=== PATIENT | male | born 1960 | race Caucasian/White ===

== ENCOUNTER 2021-12-19 08:46 | Emergency (ER) | payer MEDICAID, SELFPAY ==
--- NOTE | 2021-12-19 | ECG_ITS ---
Test Reason : chest pain Blood Pressure : / mmHG Vent. Rate : 118 BPM Atrial Rate : 118 BPM P-R Int : 184 ms QRS Dur : 108 ms QT Int : 322 ms P-R-T Axes : 069 052 024 degrees QTc Int : 451 ms Sinus tachycardia with occasional Premature ventricular complexes and Fusion complexes Inferior infarct (cited on or before 20-OCT-2016) Abnormal ECG When compared with ECG of 20-OCT-2016 10:37, Fusion complexes are now Present Premature ventricular complexes are now Present Referred By: Generic ED Physician Electronically Signed By:Narayan Cisneros
--- NOTE | ~2021-12-19 | XR_ITS ---
EXAMINATION: XR CHEST CLINICAL INFORMATION: Shortness of breath COMPARISON: Previous chest x-ray most recent October 2016 TECHNIQUE: Frontal view of the chest was obtained. FINDINGS: No significant abnormality is noted involving the heart, lungs, mediastinum, bony thorax or soft tissues. XR/XR chest 1V IMPRESSION: Unremarkable examination.
[2021-12-19 08:57] VITALS: BP 157/97; PULSE 118; RESP 18; TEMP 37.1; O2SAT 97; BMI 27.7
--- NOTE | 2021-12-19 09:55 | ED_ITS ---
HPI - Chest Pain General Chief Complaint: Chest Pain Stated Complaint: chest tightness Time Seen by Provider: 12/19/21 09:42 History of Present Illness HPI narrative: Patient is a 61-year-old male with a long history of COPD. Quit smoking approximately 6 years ago. Presents today with some coughing some generalized malaise some chest pain that is over the right lower chest area. Worse when she coughs. There is no diaphoresis. Positive generalized malaise. Patient had his coronavirus vaccine x3. Patient denies any diarrhea. Denies any history of blood clots. No leg swelling. No history of cancer. No risk stratification done in the past. No diabetes, hypertension. Positive history of smoking. No history of WI in the past. No family history of WI. not O2 dependent. Related Data Allergies Allergy/AdvReac Type Severity Reaction Status Date / Time No Known Allergies Allergy Verified 12/19/21 08:52 [No Known Allergies*] Review of Systems Review of Systems: Positive coughing positive chest pain No diaphoresis All system reviewed otherwise negative PMFSH Past Medical History Attestation statement: The following information was validated with the patient. Medical History COPD (chronic obstructive pulmonary disease) Social History Social History Advance Directives: No Advance Directives Information Provided: No Physical Exam Vital Signs: Vital Signs: Last Vital Signs Temp 98.8 F 12/19/21 08:57 Pulse 116 H 12/19/21 10:59 Resp 22 H 12/19/21 10:59 BP 157/97 H 12/19/21 08:57 Pulse Ox 97 12/19/21 08:57 BMI result Body Mass Index 27.7 Appearance: Alert. Oriented X3. No acute distress. Eyes: Pupils equal, round and reactive to light. ENT: Pharynx normal. Neck: Normal inspection. Neck supple. No lymph nodes noted. No crepitus CVS: Normal heart rate and rhythm. Pulses normal. Normal S1 and S2 Respiratory: Diminished breath sounds bilaterally Abdomen: Soft and nontender. No rigidity. No distention. good BS x4 Skin: Skin warm and dry. Normal skin color. Normal skin turgor. Extremities: No lower extremity edema. Neurovascular intact to all extremities. No Lacerations. No Rash Neuro: Oriented X 3. No motor deficit. No sensory deficit. Moving all extermities. No slurred speech MDM - Chest Pain MDM Narrative Medical decision making narrative: Patient's chest pain atypical for ACS. Two sets of cardiac enzymes are negative. He is 61 years old he has a significant history of smoking. His EKG showed a sinus pattern with PVCs. Heart rate was 110 initially. There is no acute ST segment elevation noted. EKG is unchanged from previous. Patient's D- dimer is 282 considering patient is 61 years old age adjusted patient's D-dimer is actually negative. Will discharge patient home in this setting patient has very low risk for blood clot has history not consistent with a blood clot D- dimer is negative. He is in stable condition with discharge home. Patient's flu and COVID were negative. Medical Records Data Attestation: I reviewed the patient's medical records. Lab Data Attestation: I reviewed the patient's lab results. Result diagrams: 12/19/21 10:20 12/19/21 10:20 Labs: Lab Results 12/19/21 12/19/21 12/19/21 Range/Units 10:20 10:20 10:20 WBC 7.5 (4.8-10.8) X10*3/uL RBC 5.19 (4.60-5.80) X10*6/uL Hgb 13.9 L (14.0-18.0) g/dl Hct 41.2 L (42.0-52.0) % MCV 79.4 L (80.0-98.0) fL MCH 26.8 L (27.0-33.0) pg MCHC 33.7 (31.0-36.0) g/dl RDW 14.9 (11.0-16.0) % Plt Count 269 (160-400) X10*3/uL MPV 10.3 (9.4-12.4) fL Immature Gran % (Auto) 0.3 (0.0-0.4) % Neut % (Auto) 47.6 (45-73) % Lymph % (Auto) 29.8 (20-40) % [place] % (Auto) 8.4 (2-11) % Eos % (Auto) 12.7 H (0-4) % Baso % (Auto) 1.2 (0-2) % Lymph # (Auto) 2.3 (1.2-4.9) X10*3/uL [place] # (Auto) 0.6 (0.1-1.2) X10*3/uL Eos # (Auto) 1.0 H (0.0-0.4) X10*3/uL Baso # (Auto) 0.1 (0.0-0.2) X10*3/uL Abs Immat Gran (auto) 0.02 (0.00-0.03) X10*3/uL Absolute Neuts (auto) 3.6 (2.0-8.3) x10*3/uL Absolute Nucleated RBC 0.000 (0.0-0.012) X10*3/uL Nucleated RBC % (auto) 0.0 (0.0-0.2) /100WBC D-Dimer High Sensitivty NG/ML Sodium 136 (135-145) mmol/L Potassium 3.8 (3.3-5.1) mmol/L Chloride 103 (96-108) mmol/L Carbon Dioxide 27 (22-29) mmol/L Anion Gap 10 L (12-20) BUN 5 L (9-16) mg/dL Creatinine 0.88 (0.5-1.4) mg/dL Estim Creat Clear Calc 102.1 Estimated GFR > 60 Random Glucose 119 H (60-115) mg/dL Calcium 9.3 (8.4-10.2) mg/dL Troponin I High Sens 11.8 (<3.5-35.0) ng/L B-Natriuretic Peptide 32 (<100) pg/mL COVID-19 ([facility]) (Negative) COVID-19 Clin Com Influenza Type A (YUVAL) Influenza Type B (YUVAL) Influenza A & B Note 12/19/21 12/19/21 12/19/21 Range/Units 10:20 10:21 11:14 WBC (4.8-10.8) X10*3/uL RBC (4.60-5.80) X10*6/uL Hgb (14.0-18.0) g/dl Hct (42.0-52.0) % MCV (80.0-98.0) fL MCH (27.0-33.0) pg MCHC (31.0-36.0) g/dl RDW (11.0-16.0) % Plt Count (160-400) X10*3/uL MPV (9.4-12.4) fL Immature Gran % (Auto) (0.0-0.4) % Neut % (Auto) (45-73) % Lymph % (Auto) (20-40) % [place] % (Auto) (2-11) % Eos % (Auto) (0-4) % Baso % (Auto) (0-2) % Lymph # (Auto) (1.2-4.9) X10*3/uL [place] # (Auto) (0.1-1.2) X10*3/uL Eos # (Auto) (0.0-0.4) X10*3/uL Baso # (Auto) (0.0-0.2) X10*3/uL Abs Immat Gran (auto) (0.00-0.03) X10*3/uL Absolute Neuts (auto) (2.0-8.3) x10*3/uL Absolute Nucleated RBC (0.0-0.012) X10*3/uL Nucleated RBC % (auto) (0.0-0.2) /100WBC D-Dimer High Sensitivty 282 NG/ML Sodium (135-145) mmol/L Potassium (3.3-5.1) mmol/L Chloride (96-108) mmol/L Carbon Dioxide (22-29) mmol/L Anion Gap (12-20) BUN (9-16) mg/dL Creatinine (0.5-1.4) mg/dL Estim Creat Clear Calc Estimated GFR Random Glucose (60-115) mg/dL Calcium (8.4-10.2) mg/dL Troponin I High Sens (<3.5-35.0) ng/L B-Natriuretic Peptide (<100) pg/mL COVID-19 (GENE) Negative (Negative) COVID-19 Clin Com See Note Influenza Type A (YUVAL) Cancelled Influenza Type B (YUVAL) Cancelled Influenza A & B Note Cancelled 12/19/21 12/19/21 Range/Units 12:28 12:28 WBC (4.8-10.8) X10*3/uL RBC (4.60-5.80) X10*6/uL Hgb (14.0-18.0) g/dl Hct (42.0-52.0) % MCV (80.0-98.0) fL MCH (27.0-33.0) pg MCHC (31.0-36.0) g/dl RDW (11.0-16.0) % Plt Count (160-400) X10*3/uL MPV (9.4-12.4) fL Immature Gran % (Auto) (0.0-0.4) % Neut % (Auto) (45-73) % Lymph % (Auto) (20-40) % [place] % (Auto) (2-11) % Eos % (Auto) (0-4) % Baso % (Auto) (0-2) % Lymph # (Auto) (1.2-4.9) X10*3/uL [place] # (Auto) (0.1-1.2) X10*3/uL Eos # (Auto) (0.0-0.4) X10*3/uL Baso # (Auto) (0.0-0.2) X10*3/uL Abs Immat Gran (auto) (0.00-0.03) X10*3/uL Absolute Neuts (auto) (2.0-8.3) x10*3/uL Absolute Nucleated RBC (0.0-0.012) X10*3/uL Nucleated RBC % (auto) (0.0-0.2) /100WBC D-Dimer High Sensitivty NG/ML Sodium (135-145) mmol/L Potassium (3.3-5.1) mmol/L Chloride (96-108) mmol/L Carbon Dioxide (22-29) mmol/L Anion Gap (12-20) BUN (9-16) mg/dL Creatinine (0.5-1.4) mg/dL Estim Creat Clear Calc Estimated GFR Random Glucose (60-115) mg/dL Calcium (8.4-10.2) mg/dL Troponin I High Sens 12.6 (<3.5-35.0) ng/L B-Natriuretic Peptide (<100) pg/mL COVID-19 (GENE) (Negative) COVID-19 Clin Com Influenza Type A (YUVAL) Negative Influenza Type B (YUVAL) Negative Influenza A & B Note See Note Discharge Plan Discharge Clinical Impression: Chest pain Patient Disposition: Home, Self-Care Instructions: Chest Pain (DC) Additional Instructions: Worsened chest pain return. Very small risk of cardiac issues exist. Please closely follow-up with your doctor on an outpatient basis. Referrals: Physician,None [Primary Care Provider] - 2 days
[2021-12-19] MEDS: methylPREDNISolone Sod Succ 125 MG/2 ML VIAL IVPUSH (10:28)
[2021-12-19 10:31] LABS: MANUAL DIFF FLAG NO
[2021-12-19 10:34] LABS: Basophils Absolute Auto 0.1 X10*3/uL (0.0-0.2); Basophils Percent Auto 1.2 % (0-2); Eosinophils Percent Auto 12.7 % (0-4); Hematocrit 41.2 % (42.0-52.0); Hemoglobin 13.9 g/dl (14.0-18.0); Imm Gran Abs Auto 0.02 X10*3/uL (0.00-0.03); Imm Gran Pct Auto 0.3 % (0.0-0.4); Lymphocytes Absolute Auto 2.3 X10*3/uL (1.2-4.9); Lymphocytes Percent Auto 29.8 % (20-40); Mean Corpuscular HGB Conc 33.7 g/dl (31.0-36.0); Mean Corpuscular Hemoglobin 26.8 pg (27.0-33.0); Mean Corpuscular Volume 79.4 fL (80.0-98.0); Mean Platelet Volume 10.3 fL (9.4-12.4); Monocytes Absolute Auto 0.6 X10*3/uL (0.1-1.2); Monocytes Percent Auto 8.4 % (2-11); Neutrophils Absolute Auto 3.6 x10*3/uL (2.0-8.3); Neutrophils Percent Auto 47.6 % (45-73); Platelet Count 269 X10*3/uL (160-400); Red Blood Count 5.19 X10*6/uL (4.60-5.80); Red Cell Distribution Width 14.9 % (11.0-16.0); White Blood Count 7.5 X10*3/uL (4.8-10.8)
[2021-12-19 10:42] LABS: D Dimer High Sensitivity 282 NG/ML
[2021-12-19 10:50] LABS: COVID-19 Test Negative (Negative); IDNOW Serial# 9DD0AD1C
[2021-12-19 10:51] LABS: Anion Gap 10 (12-20); Blood Urea Nitrogen 5 mg/dL (9-16); Calcium 9.3 mg/dL (8.4-10.2); Carbon Dioxide 27 mmol/L (22-29); Chloride 103 mmol/L (96-108); Creatinine Clr Calc Pharmacy 102.1; Estimated Glomerular Filt Rate > 60; Glucose Random 119 mg/dL (60-115); Potassium 3.8 mmol/L (3.3-5.1); Sodium 136 mmol/L (135-145)
[2021-12-19] MEDS: Albuterol/Iprat 2.5/0.5MG 3 ML AMPUL.NEB INHALE (10:54)
[2021-12-19 10:55] LABS: B Type Natriuretic Peptide 32 pg/mL (<100); Troponin-I High Sensitivity 11.8 ng/L (<3.5-35.0)
[2021-12-19 10:59] VITALS: PULSE 116; RESP 22
[2021-12-19 12:55] LABS: IDNOW Serial# 55D5AD1C; Influenza A Negative (Negative); Influenza B2 Negative (Negative)
[2021-12-19 12:58] LABS: Troponin-I High Sensitivity 12.6 ng/L (<3.5-35.0)
== END 2021-12-19 13:43 | disposition home or self-care (01) ==
PROVIDERS: Emergency Provider Emergency Medicine Emergency Medical Services
DX: R07.9 Chest pain, unspecified (principal); Z20.822 Contact with and (suspected) exposure to COVID-19; J44.9 Chronic obstructive pulmonary disease, unspecified; R53.81 Other malaise; Z87.891 Personal history of nicotine dependence
CPT/HCPCS: 36415; 71045; 80048; 83880; 84484; 85025; 85379; 87502; 87635; 93005; 94640; 96374; 99283; 99284; J2930